=== PATIENT | female | born 1945 ===

== ENCOUNTER → 2017-09-06 | Outpatient (CLI) | payer MEDICARE, OTHER ==
--- NOTE | 2017-09-06 19:36 | XCELERA REPORT ---
[address] [address] Transthoracic Echocardiogram Report Name: AMY ASHLEY Age: 72 yrs Gender: Female : 1945 Patient Status: Outpatient Patient Location: Study Date: 09/06/2017 10:06 AM Height: 64 in Weight: 180 lb BSA: 1.9 m2 Procedure: A complete two-dimensional transthoracic echocardiogram was performed (2D, M-mode, spectral and color flow Doppler). The study was technically good with many images being of high quality. Reason For Study: SOB Ordering Physician: PETE GALINDO Performed By: Earnest Crandall Interpretation Summary Left ventricular systolic function is low normal. There is normal left ventricular wall thickness. The left ventricle is grossly normal size. LV diastolic function could not be adequately assessed due to atrial fibrilation. Wall motion cannot be accurately commented on, but no definite regional wall motion abnormalities noted. The right ventricle is borderline dilated. The right atrium is moderately dilated. The left atrium is mildly dilated. There is no mitral valve stenosis. There is no mitral regurgitation noted. There is no aortic valve stenosis No aortic regurgitation is present. There is a trace or physiologic amount of tricuspid regurgitation Tricuspid regurgitation jet envelope not well defined to measure RV systolic pressure accurately. The aortic root is not well visualized but is probably normal size. The inferior vena cava appeared normal and decreased > 50% with respiration (RAP 5-10 mmHg) Minimal pericardial effusion. MMode/2D Measurements & Calculations RVDd: 3.1 cm LVIDd: 5.3 cm FS: 28.3 % Ao root diam: 2.5 cm IVSd: 0.80 cm LVIDs: 3.8 cm EDV(Teich): 138.1 ml LVPWd: 0.83 cm ESV(Teich): 63.3 ml Ao root area: 4.9 cm2 EF(Teich): 54.2 % LA dimension: 4.0 cm Doppler Measurements & Calculations MV E max ky: MV P1/2t max ky: Ao V2 max: LV V1 max P.9 cm/sec 120.4 cm/sec 112.5 cm/sec 2.1 mmHg MV A max ky: MV P1/2t: 64.5 msec Ao max PG: LV V1 max: 40.5 cm/sec 5.1 mmHg 72.1 cm/sec MV E/A: 3.0 MVA(P1/2t): 3.4 cm2 MV dec slope: 547.2 cm/sec2 PA V2 max: TR max ky: 83.4 cm/sec 257.9 cm/sec PA max P.8 mmHgTR max P.6 mmHg Left Ventricle The left ventricle is grossly normal size. There is normal left ventricular wall thickness. Left ventricular systolic function is low normal. LV diastolic function could not be adequately assessed due to atrial fibrilation. Wall motion cannot be accurately commented on, but no definite regional wall motion abnormalities noted. Right Ventricle The right ventricle is borderline dilated. Right ventricular function cannot be assessed due to poor image quality. Atria The right atrium is moderately dilated. The left atrium is mildly dilated. Interarterial septum not well visualized and not well dopplered. Cannot comment on ASD/PFO presence. Mitral Valve The mitral valve is grossly normal. There is no mitral valve stenosis. There is no mitral regurgitation noted. Aortic Valve The aortic valve is not well visualized secondary to technical limitations. There is no aortic valve stenosis. No aortic regurgitation is present. Tricuspid Valve The tricuspid valve is not well visualized secondary to technical limitations. There is no tricuspid stenosis. There is a trace or physiologic amount of tricuspid regurgitation. Tricuspid regurgitation jet envelope not well defined to measure RV systolic pressure accurately. Pulmonic Valve The pulmonic valve is not well visualized. Great Vessels The aortic root is not well visualized but is probably normal size. The inferior vena cava appeared normal and decreased > 50% with respiration (RAP 5-10 mmHg). Effusions Minimal pericardial effusion. : PETE GALINDO > Jalen Sheridan
== END ==
LOC: SP 09:43 → 5TH 09:47
PROVIDERS: ATTEND Specialist
DX: I31.3 Pericardial effusion (noninflammatory) (principal); R06.02 Shortness of breath
CPT/HCPCS: 93306